=== PATIENT | female | born 1970 | race Caucasian/White ===

== ENCOUNTER 2020-06-02 13:01 | Emergency (ER) | payer SELFPAY ==
[~2020-06-02] VITALS: Ht 162.6 cm; Wt 90.9 kg
[2020-06-02] MEDS ORDERED: IV NORMAL SALINE 1000ML BAG 1,000 ML IV SCH (13:45)
[2020-06-02] MEDS ORDERED: MORPHINE SULFATE 2 MG/ML VIAL. IV/SQ PRN (13:45)
[2020-06-02] MEDS ORDERED: ONDANSETRON PF 4 MG/2 ML VIAL. IVP ONE (13:45)
[2020-06-02 13:46] LABS: BILIRUBIN,URINE NEGATIVE (NEG); CLARITY,URINE CLEAR; COLOR,URINE YELLOW; NITRITE,URINE NEGATIVE (NEG); PROTEIN,URINE NEGATIVE (NEG-TRACE); UROBILINOGEN,URINE 0.2 mg/dL (0.2 mg/dL)
--- NOTE | 2020-06-02 13:52 | PHYS DOC ---
Past Medical History Past Medical History: Anxiety, Depression, UTI Past Surgical History: Cholecystectomy, Tonsillectomy, Tubal ligation Smoking Status: Never Smoker Alcohol Use: None General Adult EDM: Chief Complaint: FEVER HPI: HPI: Patient is a 49 year old female with history of depression, anxiety, UTIs, presenting today complaining of mild to moderate intermittent left flank pain with nausea, vomiting, and a fever, symptoms began last night. Patient denies any hematemesis. States this is similar symptoms to the last time she had a UTI. Review of Systems: Review of Systems: Constitutional: Denies fever or chills. [] Eyes: Denies change in visual acuity. [] HENT: Denies nasal congestion or sore throat. [] Respiratory: Denies cough or shortness of breath. [] Cardiovascular: Denies chest pain or edema. [] GI: Reports nausea, vomiting. Denies abdominal pain, bloody stools or diarrhea. [] : Reports left flank pain. Denies dysuria. [] Musculoskeletal: Denies back pain or joint pain. [] Integument: Denies rash. [] Neurologic: Denies headache, focal weakness or sensory changes. [] Psychiatric: Denies depression or anxiety. [] Heart Score: Risk Factors: Risk Factors: DM, Current or recent (<one month) smoker, HTN, HLP, family history of CAD, obesity. Risk Scores: Score 0 - 3: 2.5% MACE over next 6 weeks - Discharge Home Score 4 - 6: 20.3% MACE over next 6 weeks - Admit for Clinical Observation Score 7 - 10: 72.7% MACE over next 6 weeks - Early Invasive Strategies Current Medications: Current Medications Medications (Trade) Dose Ordered Sig/Marcelo Start Time Stop Time Status Last Admin Dose Admin Morphine Sulfate (Morphine Sulfate) 2 mg PRN Q15MIN PRN 06/02/20 13:45 06/03/20 13:44 UNV Ondansetron HCl (Zofran) 4 mg 1X ONCE 06/02/20 13:45 06/02/20 13:46 UNV Sodium Chloride 1,650 ml @ 1,650 mls/hr Q1H 06/02/20 13:45 UNV Physical Exam: PE: Constitutional: Well developed, well nourished, no acute distress, non-toxic appearance. [] HENT: Normocephalic, atraumatic, bilateral external ears normal, oropharynx moist, no oral exudates, nose normal. [] Eyes: PERRLA, EOMI, conjunctiva normal, no discharge. [] Neck: Normal range of motion, no tenderness, supple, no stridor. [] Cardiovascular:Heart rate regular rhythm, no murmur [] Lungs & Thorax: Bilateral breath sounds clear to auscultation [] Abdomen: Bowel sounds normal, soft, no tenderness, no masses, no pulsatile masses. [] Skin: Warm, dry, no erythema, no rash. [] Back: No tenderness, mild left CVA tenderness. [] Extremities: No tenderness, no cyanosis, no clubbing, ROM intact, no edema. [] Neurologic: Alert and oriented X 3, normal motor function, normal sensory function, no focal deficits noted. [] Psychologic: Affect normal, judgement normal, mood normal. [] Current Patient Data: Vital Signs: Vital Signs Date Time Temp Pulse Resp B/P (MAP) Pulse Ox O2 Delivery O2 Flow Rate FiO2 06/02/20 13:33 100.5 115 16 135/81 (99) 98 Room Air 100.5 EKG: EKG: [] Radiology/Procedures: Radiology/Procedures: []PROCEDURE: CT ABD PELV W/ IV CONTRST ONLY Study: CT abdomen/pelvis with intravenous contrast Indication: Fever. Nausea, vomiting and abdominal pain. Comparison: None. Technique: Helical CT imaging performed of the abdomen and pelvis after the intravenous administration of 75 cc Omnipaque 300 contrast. Sagittal and coronal reformats were obtained. One or more of the following individualized dose reduction techniques were utilized for this examination: 1. Automated exposure control 2. Adjustment of the mA and/or kV according to patient size 3. Use of iterative reconstruction technique. Findings: Right middle lobe nodule measuring 3 mm. Punctate right middle lobe pleural- based nodule. 3.5 mm pleural-based nodular focus at the posterior right lower lobe. None of these nodules meet size criteria for dedicated follow-up unless otherwise clinically indicated. Hepatic steatosis. Status post cholecystectomy. Unremarkable pancreas, adrenal glands and spleen. Surgical clip along the medial margin of the right hepatic lobe. Symmetric renal enhancement. No stone or collecting system dilatation. Unremarkable bladder. Within normal limits uterus and adnexa for patient age. A few colonic diverticuli without diverticulitis. Incompletely formed stool within the proximal colon. The appendix is not visualized and may be surgically absent. Unremarkable stomach. Short segment mild dilatation of small bowel at the left lower quadrant. No downstream collapse to suggest obstruction. Mild aortobiiliac calcific atherosclerosis. Patent major veins. No lymphadenopathy. No free fluid or pneumoperitoneum. Mild lumbar spondylosis. Impression: 1. Incompletely formed stool within the proximal colon suggesting a diarrheal state. No bowel obstruction or findings of an overt enterocolitis. 2. Hepatic steatosis. Electronically signed by: JANE WASHINGTON MD (06/02/2020 3:49 PM) [facility] DICTATED and SIGNED BY: JANE WASHINGTON MD DATE: 06/02/20 [id number] PROCEDURE: CHEST AP ONLY Single view chest dated 06/02/2020: No comparison available. Clinical Indication: Fever. Findings: Single upright portable exam of the chest was performed. Heart size and mediastinal contours are within normal limits given technique. The lungs are clear without evidence of focal consolidation. Vascular interstitium is within normal limits. Impression:: No evidence of focal pneumonia. Electronically signed by: Jose Barrios MD (06/02/2020 2:24 PM) [id number] DICTATED and SIGNED BY: JOSE BARRIOS MD DATE: 06/02/20 [id number] 0 Course & Med Decision Making: Course & Med Decision Making Pertinent Labs and Imaging studies reviewed. (See chart for details) This is a 49-year-old female patient presented to the ED today with fever, nausea, vomiting and flank pain since last night. Temperature 100.5 with a heart rate of 115, blood pressure 135/81. Started on the sepsis protocol IV fluids. CBC with a WBC of 18.1 and a left shift, CMP with no acute findings. Lactic is normal. UA negative for infection. CT of the abdomen and pelvic noted for diarrheal state. Chest x-ray is negative. Patient denies being on any antibiotics. She is feeling better and desires to go home. COVID-19 test pending. Discharged with instructions to push fluids, Zofran prescription provided, instructed to maintain good hand hygiene. Follow-up with PCP next week Mehul Disclaimer: Mehul Disclaimer: This electronic medical record was generated, in whole or in part, using a voice recognition dictation system. Departure Departure Impression: Primary Impression: Fever Qualified Codes: R50.9 - Fever, unspecified Additional Impressions: Vomiting and diarrhea Person under investigation for COVID-19 Disposition: 01 DC HOME SELF CARE/HOMELESS Condition: STABLE Referrals: NO PCP (PCP) Follow-up with your doctor next week Patient Instructions: Diarrhea, [id number], Fever, Adult, Nausea and Vomiting, [id number] Additional Instructions: You were evaluated in the emergency room for nausea, vomiting and a fever. You also have diarrhea noted on your CAT scan. Please push fluids, maintain good and hygiene. Take the prescribed medication as ordered. Follow-up with your doctor next week. We will call you when COVID-19 results are available. Scripts Dicyclomine Hcl (DICYCLOMINE HCL) 20 Mg Tablet 1 TAB PO TID, #30 TAB 1 Refill Prov: DRAKE TUCKER APRN 06/02/20 Prochlorperazine Maleate (Compazine) 10 Mg Tablet 1 TAB PO Q6HRS for 7 Days, #28 TAB 0 Refills Prov: DRAKE TUCKER APRN 06/02/20 DRAKE TUCKER APRN Jun 02, 2020 13:52
[2020-06-02 14:04] LABS: BACTERIA,URINE 0 /HPF (0-FEW); BARBITURATES NEG (NEG); BENZODIAZEPINES NEG (NEG); CANNABINOIDS POS (NEG); COCAINE NEG (NEG); METHADONE NEG (NEG); OPIATES NEG (NEG); PHENCYCLIDINE NEG (NEG); RBC,URINE RARE /HPF (0-2); WBC,URINE RARE /HPF (0-4)
[2020-06-02 14:05] LABS: AMPHETAMINE/METHAMPHETAMINE NEG (NEG)
[2020-06-02 14:09] LABS: BASO % 0 % (0-3); EOS % 0 % (0-3); HEMATOCRIT 41.1 % (36.0-47.0); HEMOGLOBIN 13.9 g/dL (12.0-15.5); LYMPH # 0.6 x10^3/uL (1.0-4.8); LYMPH % 4 % (24-48); MEAN CORPUSCULAR HEMOGLOBIN 30 pg (25-35); MEAN CORPUSCULAR HGB CONC 34 g/dL (31-37); MEAN CORPUSCULAR VOLUME 88 fL (79-100); MONO # 0.6 x10^3/uL (0.0-1.1); MONO % 4 % (0-9); NEUT # 16.7 x10^3/uL (1.8-7.7); NEUT % 93 % (31-73); PLATELET COUNT 276 x10^3/uL (140-400); RED BLOOD COUNT 4.67 x10^6/uL (3.50-5.40); RED CELL DISTRIBUTION WIDTH 13.1 % (11.5-14.5); WHITE BLOOD COUNT 18.1 x10^3/uL (4.0-11.0)
[2020-06-02] MEDS ORDERED: ACETAMINOPHEN 500 MG TABLET PO ONE (14:15)
[2020-06-02 14:22] LABS: CALCIUM 8.6 mg/dL (8.5-10.1); CREATININE 0.8 mg/dL (0.6-1.0); GFR 76.6; POTASSIUM 3.7 mmol/L (3.5-5.1)
--- NOTE | 2020-06-02 14:26 | RAD ---
Single view chest dated 06/02/2020: No comparison available. Clinical Indication: Fever. Findings: Single upright portable exam of the chest was performed. Heart size and mediastinal contours are with in normal limits given technique. The lungs are clear without evidence of focal consolidation. Vascul ar interstitium is within normal limits. Impression:: No evidence of focal pneumonia. Electronically signed by: Jose Barrios MD (06/02/2020 2:24 PM) [id number]
[2020-06-02 14:37] LABS: ALBUMIN 3.8 g/dL (3.4-5.0); TOTAL BILIRUBIN 0.3 mg/dL (0.2-1.0); TOTAL PROTEIN 7.8 g/dL (6.4-8.2)
[2020-06-02 14:39] LABS: % LYMPHS 5 % (24-48); % MONOS 2 % (0-10); % SEGS 93 % (35-66)
[2020-06-02 14:40] LABS: PLT ESTIMATE ADEQUATE (ADEQUATE)
[2020-06-02] MEDS ORDERED: IOHEXOL 300 MG/ML 100ML VIAL. IV ONE (15:00)
[2020-06-02] MEDS ORDERED: CONTRAST GIVEN. MC PRN ×2 (15:00)
--- NOTE | 2020-06-02 15:51 | RAD ---
Study: CT abdomen/pelvis with intravenous contrast Indication: Fever. Nausea, vomiting and abdominal pain. Comparison: None. Technique: Helical CT imaging performed of the abdomen and pelvis after the intravenous administratio n of 75 cc Omnipaque 300 contrast. Sagittal and coronal reformats were obtained. One or more of the following individualized dose reduction techniques were utilized for this examinat ion: 1. Automated exposure control 2. Adjustment of the mA and/or kV according to patient size 3. Use of iterative reconstruction technique. Findings: Right middle lobe nodule measuring 3 mm. Punctate right middle lobe pleural-based nodule. 3.5 mm pleu ral-based nodular focus at the posterior right lower lobe. None of these nodules meet size criteria f or dedicated follow-up unless otherwise clinically indicated. Hepatic steatosis. Status post cholecystectomy. Unremarkable pancreas, adrenal glands and spleen. Jeronimo gical clip along the medial margin of the right hepatic lobe. Symmetric renal enhancement. No stone o r collecting system dilatation. Unremarkable bladder. Within normal limits uterus and adnexa for patient age. A few colonic diverticuli without diverticulitis. Incompletely formed stool within the proximal colon . The appendix is not visualized and may be surgically absent. Unremarkable stomach. Short segment mi ld dilatation of small bowel at the left lower quadrant. No downstream collapse to suggest obstructio n. Mild aortobiiliac calcific atherosclerosis. Patent major veins. No lymphadenopathy. No free fluid or pneumoperitoneum. Mild lumbar spondylosis. Impression: 1. Incompletely formed stool within the proximal colon suggesting a diarrheal state. No bowel obstru ction or findings of an overt enterocolitis. 2. Hepatic steatosis. Electronically signed by: JANE WASHINGTON MD (06/02/2020 3:49 PM) [facility]
[2020-06-02 16:29] VITALS: BP 131/76
[2020-06-02] MEDS ORDERED: PROC10TA57 PO (16:41)
[2020-06-02] MEDS ORDERED: DICY20TA3 PO (16:41)
--- NOTE | 2020-06-04 08:18 | NUR ---
IP: Informed pt of negative COVID test. Pt voiced concern that she still has a sever sore throat. Recommended a return visit to the ED or see a PCP.
== END 2020-06-02 17:18 | disposition home or self-care (01) ==
LOC: ER 13:01
DX: R50.9 Fever, unspecified (principal); Z20.822 Contact with and (suspected) exposure to COVID-19; R11.2 Nausea with vomiting, unspecified; R19.7 Diarrhea, unspecified; R10.32 Left lower quadrant pain; F41.9 Anxiety disorder, unspecified; F32.9 Major depressive disorder, single episode, unspecified; Z90.49 Acquired absence of other specified parts of digestive tract; Z90.89 Acquired absence of other organs; Z98.51 Tubal ligation status
CPT/HCPCS: 36415; 71045; 74177; 80053; 80307; 81001; 83605; 83690; 84145; 85007; 85025; 87040; 96361; 96374; 99285; C9803; G0480; J2405; J7030; Q9967; U0003